=== PATIENT | male | born 1960 | race Asian ===

== ENCOUNTER 2020-11-20 12:27 | Emergency (ER) | payer OTHER ==
[~2020-11-20] VITALS: Ht 172.7 cm; Wt 86.6 kg
[2020-11-20 12:33] VITALS: Ht 172.7 cm; Wt 86.6 kg
[2020-11-20 15:41] VITALS: BP 121/85
== END 2020-11-20 15:41 | disposition home or self-care (01) ==
LOC: ED 12:27
DX: U07.1 COVID-19 (principal); R06.6 Hiccough; I10 Essential (primary) hypertension; M19.90 Unspecified osteoarthritis, unspecified site
CPT/HCPCS: J2405; Q0162

== ENCOUNTER 2020-11-21 09:45 | Inpatient (IN) | payer OTHER ==
[~2020-11-21] VITALS: Ht 172.7 cm; Wt 86.0 kg
[2020-11-21 10:00] VITALS: Ht 172.7 cm; Wt 86.0 kg
[2020-11-21 12:12] LABS: CALCIUM 7.8 mg/dL (8.5-10.1); CARBON DIOXIDE 23.9 mmol/L (21-32); CREATININE SERUM 1.7 mg/dL (0.7-1.3); POTASSIUM SERUM 3.6 mmol/L (3.5-5.1)
[2020-11-21 12:13] LABS: BASOPHIL % 0.3 % (0.2-1.5); PLATELET COUNT 170 x10^3mcL (152-348); RED CELL DISTRIBUTION WIDTH 13.4 % (12.1-16.2)
[2020-11-21 12:16] LABS: BILIRUBIN TOTAL 0.8 mg/dL (0.20-1.00); TOTAL PROTEIN, SERUM 7.1 g/dL (6.4-8.2)
[2020-11-21 12:24] LABS: ALBUMIN 2.7 g/dL (3.4-5.0)
[2020-11-21 13:00] LABS: C REACTIVE PROTEIN 25.8 mg/dL (<=0.9)
[2020-11-21 17:11] LABS: CHOLESTEROL/HDL RATIO 4.2; MAGNESIUM 2.1 mg/dL (1.8-2.4); PHOSPHOROUS 2.6 mg/dL (2.5-4.9)
[2020-11-21 17:17] LABS: T3 TOTAL 0.57 ng/mL
[2020-11-21 17:22] LABS: FREE T4 1.29 ng/dL (0.76-1.46); FREE THYROXINE INDEX 2.4 ug/dL (1.4-4.5); T4(THYROXINE) 6.2 ug/dL (4.7-13.3)
[2020-11-21 17:57] VITALS: BP 109/69
[2020-11-21 20:18] LABS: microscopic required? NO
[2020-11-21 20:49] LABS: urine erythrocyte NEGATIVE (NEGATIVE)
[2020-11-22 02:11] VITALS: BP 142/68
[2020-11-22 05:42] VITALS: BP 141/85
[2020-11-22 08:30] VITALS: BP 118/72
[2020-11-22 08:34] LABS: CALCIUM 7.9 mg/dL (8.5-10.1); CARBON DIOXIDE 23.6 mmol/L (21-32); CHLORIDE SERUM 99 mmol/L (98-107); CREATININE SERUM 1.2 mg/dL (0.7-1.3); GFR1 > 60 mL/min; GLUCOSE SERUM 121 mg/dL (74-106); POTASSIUM SERUM 3.9 mmol/L (3.5-5.1); SODIUM SERUM 131 mmol/L (136-145)
[2020-11-22 08:55] LABS: BASOPHIL % 0.1 % (0.2-1.5); PLATELET COUNT 165 x10^3mcL (152-348); RED CELL DISTRIBUTION WIDTH 13.4 % (12.1-16.2)
[2020-11-22 13:29] VITALS: BP 94/73
[2020-11-22 18:28] VITALS: BP 118/80
[2020-11-22 21:29] VITALS: BP 122/72
[2020-11-23 06:10] VITALS: BP 122/75
[2020-11-23 08:31] LABS: BASOPHIL % 0.3 % (0.2-1.5); PLATELET COUNT 188 x10^3mcL (152-348); RED CELL DISTRIBUTION WIDTH 13.6 % (12.1-16.2)
[2020-11-23 09:25] LABS: ALKALINE PHOSPHATASE 78 U/L (46-116); ALT/SGPT 104 U/L (16-63); AST/SGOT 61 U/L (15-37); BILIRUBIN DIRECT 0.15 mg/dL (0.0-0.2); BILIRUBIN TOTAL 0.39 mg/dL (0.20-1.00); CALCIUM 8.8 mg/dL (8.5-10.1); CARBON DIOXIDE 26.5 mmol/L (21-32); CHLORIDE SERUM 104 mmol/L (98-107); CREATININE SERUM 1.2 mg/dL (0.7-1.3); GFR1 > 60 mL/min; GLUCOSE SERUM 132 mg/dL (74-106); MAGNESIUM 2.4 mg/dL (1.8-2.4); SODIUM SERUM 138 mmol/L (136-145)
[2020-11-23 09:58] VITALS: BP 126/85
[2020-11-23 10:56] LABS: ALBUMIN 2.3 g/dL (3.4-5.0); C REACTIVE PROTEIN 21.6 mg/dL (<=0.9)
[2020-11-23 18:26] VITALS: BP 136/88
[2020-11-23 21:28] VITALS: BP 130/80
[2020-11-24 06:02] VITALS: BP 140/88
[2020-11-24 08:30] LABS: BASOPHIL % 0.1 % (0.2-1.5); PLATELET COUNT 236 x10^3mcL (152-348); RED CELL DISTRIBUTION WIDTH 13.3 % (12.1-16.2)
[2020-11-24 09:03] VITALS: BP 132/81
[2020-11-24 10:08] LABS: ALBUMIN 2.4 g/dL (3.4-5.0); ALKALINE PHOSPHATASE 76 U/L (46-116); ALT/SGPT 144 U/L (16-63); AST/SGOT 62 U/L (15-37); BILIRUBIN DIRECT 0.12 mg/dL (0.0-0.2); BILIRUBIN TOTAL 0.37 mg/dL (0.20-1.00); CALCIUM 8.5 mg/dL (8.5-10.1); CARBON DIOXIDE 23.4 mmol/L (21-32); CHLORIDE SERUM 98 mmol/L (98-107); CREATININE SERUM 1.1 mg/dL (0.7-1.3); GFR1 > 60 mL/min; GLUCOSE SERUM 104 mg/dL (74-106); SODIUM SERUM 132 mmol/L (136-145); TOTAL PROTEIN, SERUM 6.7 g/dL (6.4-8.2)
[2020-11-24 12:51] VITALS: BP 137/90
[2020-11-24 17:07] VITALS: BP 128/79
[2020-11-24 22:04] VITALS: BP 141/85
[2020-11-25 06:40] VITALS: BP 137/88
[2020-11-25 09:23] VITALS: BP 134/90
[2020-11-25 11:04] LABS: BILIRUBIN DIRECT 0.13 mg/dL (0.0-0.2); BILIRUBIN TOTAL 0.47 mg/dL (0.20-1.00); TOTAL PROTEIN, SERUM 7.1 g/dL (6.4-8.2)
[2020-11-25 11:24] LABS: ALBUMIN 2.7 g/dL (3.4-5.0)
[2020-11-25 12:33] VITALS: BP 121/81
[2020-11-25 17:47] VITALS: BP 139/88
[2020-11-25 21:40] VITALS: BP 134/90
[2020-11-26 05:49] VITALS: BP 125/89
[2020-11-26 07:41] LABS: PLATELET COUNT 304 x10^3mcL (152-348); RED CELL DISTRIBUTION WIDTH 13.3 % (12.1-16.2)
[2020-11-26 08:46] LABS: ALKALINE PHOSPHATASE 75 U/L (46-116); ALT/SGPT 216 U/L (16-63); AST/SGOT 87 U/L (15-37); BILIRUBIN DIRECT 0.14 mg/dL (0.0-0.2); BILIRUBIN TOTAL 0.4 mg/dL (0.20-1.00); CALCIUM 8.8 mg/dL (8.5-10.1); CARBON DIOXIDE 26.1 mmol/L (21-32); CHLORIDE SERUM 100 mmol/L (98-107); CREATININE SERUM 1.1 mg/dL (0.7-1.3); GFR1 > 60 mL/min; GLUCOSE SERUM 81 mg/dL (74-106); POTASSIUM SERUM 4.2 mmol/L (3.5-5.1); SODIUM SERUM 136 mmol/L (136-145); TOTAL PROTEIN, SERUM 6.9 g/dL (6.4-8.2)
[2020-11-26 08:47] LABS: ALBUMIN 2.8 g/dL (3.4-5.0)
[2020-11-26 09:11] VITALS: BP 140/92
[2020-11-26] MEDS ORDERED: VENTOLIN H0.09 MG/A1 INH (10:12)
[2020-11-26] MEDS ORDERED: VITC PO (10:13)
[2020-11-26] MEDS ORDERED: D-10001 TAB PO (10:13)
[2020-11-26] MEDS ORDERED: ZINC SULFATE220 MG PO (10:13)
[2020-11-26] MEDS ORDERED: DECADRON6 MG PO (10:14)
[2020-11-26 12:40] VITALS: BP 118/86
[2020-11-26 15:30] LABS: BAND NEUTROPHIL 5 % (0-10); METAMYELOCTE 1 % (0-2); MONOCYTE 8 % (0-7); MYELOCYTE 3 % (0-2); SEGMENTED NEUTROPHILS 65 % (37-75)
[2020-11-26 15:31] LABS: ATYPICAL LYMPH 4 %; PLATELET MORPHOLOGY PLATELETS NORMAL; rbc morphology (normal/abnorm) NORMAL (NORMAL)
[2020-11-26 15:59] VITALS: BP 118/86
[2020-11-26 17:00] VITALS: BP 143/71
== END 2020-11-26 19:32 | disposition home or self-care (01) | DRG 871 ==
LOC: ED 09:45 → DU 12:44
PROVIDERS: Emergency Medicine; Internal Medicine; ADMIT Family Medicine; ATTEND Family Medicine
PROC: XW033E5 Introduction of Remdesivir Anti-infective into Peripheral Vein, Percutaneous Approach, New Technology Group 5 (ICD-10-PCS; principal; 2020-11-22)
DX: A41.89 Other specified sepsis (principal); U07.1 COVID-19; J12.82 Pneumonia due to coronavirus disease 2019; E44.0 Moderate protein-calorie malnutrition; I10 Essential (primary) hypertension; M19.90 Unspecified osteoarthritis, unspecified site; Z52.4 Kidney donor; Z68.25 Body mass index [BMI] 25.0-25.9, adult
CPT/HCPCS: 36600; 83880; 84439; 85378; 87804; G0378; J0456; J0696; J1100; J1650; J7030; J7060; U0003